=== PATIENT | female | born 1950 | race Caucasian/White ===

== ENCOUNTER 2024-12-26 04:33 | Inpatient (IN) | payer MEDICARE, BC ==
[2024-12-26 06:12] LABS: Glucose,Whole Blood 107 mg/dL (70-110)
--- NOTE | 2024-12-26 07:23 | ED ---
General Adult HPI <IreneMorenitazuleima Khan - Last Filed: 12/26/24 09:46> - General Source: EMS Mode of arrival: EMS <AlekTatianna - Last Filed: 12/26/24 19:08> - General Chief complaint: Fall Stated complaint: Fall Time Seen by Provider: 12/26/24 04:34 - History of Present Illness Initial comments: Patient is a 74-year-old female with a past medical history of myasthenia gravis presenting today for generalized weakness after slipping out of bed this evening. Patient is a poor historian though is AO x 4. States that she slid o ut of bed to the ground this evening. She did not hit her head and denies injury. She was unable to get up to stand so they called for a lift assist. The patient states that the fire department "has become very familiar with her recently" and when asked if this is because of needing multiple lift assists she states yes and when asked how long has been going on for she is unable to tell me. The patient denies any recent fevers, illness or chills. Denies chest pain or shortness of breath. Endorses "pain all over when you touch her" but states this has been going on for a week and is not a new issue since sliding to the ground. She is not she is not on blood thinners. When asked about who she sees to manage her myasthenia gravis she states she used to see a doctor in [place] however upon moving to [place] she had meant to find a doctor but was unable to due to COVID-19 and has not followed up with anybody since. States she is taking her medications as prescribed. (Tatianna Barboza) - Related Data Home Medications Medication Instructions Recorded Confirmed predniSONE 10 mg PO DAILY 05/09/15 12/26/24 Latanoprost [Latanoprost 0.005%] 1 drop BOTH EYES HS 12/26/24 12/26/24 Morphine Sulfate ER [Ms Contin] 30 mg PO Q12HR 12/26/24 12/26/24 Rivaroxaban [Xarelto] 15 mg PO W/SUPPER 12/26/24 12/26/24 mycophenolate mofetiL [Cellcept] 500 mg PO BID 12/26/24 12/26/24 traMADol HCl [Ultram] 50 mg PO Q6H PRN 12/26/24 12/26/24 Allergies Allergy/AdvReac Type Severity Reaction Status Date / Time No Known Allergies Allergy Verified 12/26/24 09:44 Review of Systems ROS Other: All systems not noted in ROS Statement are negative. <Simone Bonilla - Last Filed: 12/26/24 09:46> Limitations: ROS unobtainable due to patients medical condition <Tatianna Barboza - Last Filed: 12/26/24 19:08> ROS Statement: Those systems with pertinent positive or pertinent negative responses have been documented in the HPI. 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 History of Any Multi-Drug Resistant Organisms: None Reported Past Surgical History: Section, Joint Replacement, Orthopedic Surgery, Tubal Ligation Additional Past Surgical History / Comment(s): Hip Replacment- Right 2009, Left- Nov 2013, 2 revisions and fix (dec, aug 19, fix sep 19) Past Anesthesia/Blood Transfusion Reactions: No Reported Reaction Past Psychological History: No Psychological Hx Reported Past Alcohol Use History: None Reported Past Drug Use History: None Reported - Past Family History Mother Family Medical History: Cancer, Hypertension Additional Family Medical History / Comment(s): Breast CA, Skin CA, grandmother had bad DM Father Family Medical History: Osteoarthritis (OA) Additional Family Medical History / Comment(s): DJD AND HIP REPLACEMENT, Skin CA <Tatianna Barboza - Last Filed: 12/26/24 19:08> General Exam <Tatianna Barboza - Last Filed: 12/26/24 19:08> - General Exam Comments Initial Comments: PE: CONSTITUTIONAL: No apparent distress, chronically ill-appearing SKIN: Warm, dry, no jaundice, hives or petechiae, no hematomas, contusions lacerations or abrasions EYES: Pupils are equally round, extraocular movements intact without nystagmus, clear conjunctiva, non-icteric sclera, no ptosis HENT: Normocephalic, atraumatic, moist mucus membranes, oropharynx clear without exudates NECK: , Full range of motion, normal appearance, no midline spinal tenderness palpation PULMONARY: Clear to auscultation without wheezes, rhonchi, or rales, normal excursion, no accessory muscle use and no stridor CARDIOVASCULAR: Regular rate, rhythm, normal S1 and S2. No appreciated murmurs, rubs or gallops. Strong radial pulses with intact distal perfusion. No lower extremity edema GASTROINTESTINAL: Soft, active bowel sounds throughout, non-tender, non- distended, no palpable masses, no rebound or guarding. No hepatosplenomegaly MUSCULOSKELETAL: Extremities have no gross deformity, no tenderness palpation or signs of injury, back has no signs of injury no midline spinal tenderness palpation NEUROLOGIC:_a/o x 3, GCS 15, patient does take a prolonged amount of time to answer certain questions and appears to lose train of thought frequently however speech is clear, no focal neurologic deficits,. Moves all extremities x 4 without sensory deficit, there was diffusely weak with 2-3 out of 5 strength in all 4 extremities PSYCHIATRIC:_normal mood and affect, thought process is linear though does ap pear clouded at times (Tatianna Barboza) Course Vital Signs 12/26/24 12/26/24 12/26/24 04:40 05:16 06:01 Temperature 98.4 F 98.2 F Pulse Rate 109 H 91 Respiratory 18 18 Rate Blood Pressure 109/83 112/74 132/79 O2 Sat by Pulse 97 98 98 Oximetry 12/26/24 12/26/24 12/26/24 09:00 12:00 17:54 Temperature Pulse Rate 105 H 113 H 115 H Respiratory 18 18 17 Rate Blood Pressure 122/76 90/71 121/78 O2 Sat by Pulse 98 96 98 Oximetry EKG Findings - EKG Comments: EKG Findings:: Sinus tachycardia, rate 104 bpm WA interval 133 ms QT/QTc 341/401 ms, left axis deviation, no ST elevations or depressions, no STEMI no arr hythmia <Tatianna Barboza - Last Filed: 12/26/24 19:08> Medical Decision Making - Lab Data Result diagrams: 12/26/24 07:50 12/26/24 07:50 <Simone Bonilla - Last Filed: 12/26/24 09:46> - Lab Data Result diagrams: 12/26/24 07:50 12/26/24 07:50 <Tatianna Barboza - Last Filed: 12/26/24 19:08> - Medical Decision Making Patient care signed out to me by previous shift physician, Dr. Barboza. Briefly, patient is a 74-year-old female with past medical history of myasthenia gravis presents to the emergency department after she fell was too weak to get up. Patient seen and evaluated at the bedside. Ultrasound-guided IV was placed in the right mid arm. Patient tolerated procedure well. States of all of her complaints her primary complaint is of back pain and the fact that she is so we ak that she cannot get up. Patient in no acute distress at the bedside. She is not showing signs of dyspnea or lethargy. Pending labs reviewed. Labs are unremarkable. Viral testing is negative. Case discussed with hospitalist for admission. Patient gravely disabled hospitalist request neurology consultation. Diagnosis/symptom? @ -Gravely disabled Acute, or Chronic, or Acute on Chronic? @ -Default Uncomplicated (without systemic symptoms) or Complicated (systemic symptoms)? @ -Default Side effects of treatment? @ -None Exacerbation, Progression, or Severe Exacerbation] @ -No Poses a threat to life or bodily function? @ -yes (Simone Bonilla) Was pt. sent in by a medical professional or institution (RILEY Amado, UNDERTAKER ASSISTANT, urgent care, hospital, or assisted...) When possible be specific @ -No Did you speak to anyone other than the patient for history (EMS, parent, family, police, friend...)? What history was obtained from this source @ -No Did you review nursing and triage notes (agree or disagree)? Why? @ -I reviewed nursing and triage notes patient said out of bed this morning, too weak to get up, reports taking Xarelto no head injury or loss of consciousness, history myasthenia gravis Were old charts reviewed (outside hosp., previous admission, EMS record, old EKG, old radiological studies, urgent care reports/EKG's, assisted records)? Report findings @ -Medical records reviewed patient has not been seen in the hospital/most recent records review are from 2014, and EEG done at that time for metabolic encephalopathy 50 there was no epileptiform activity Differential Diagnosis (chest pain, altered mental status, abdominal pain women, abdominal pain men, vaginal bleeding, weakness, fever, dyspnea, syncope, headache, dizziness, GI bleed, back pain, seizure, CVA, palpatations, mental health, musculoskeletal)? @Differential Weakness: Hypoglycemia, shock, sepsis, myasthenic crisis, hyponatremia, anemia, infection, MD, ETOH, adverse medicine reaction, overdose, stroke, this is not meant to be an all-inclusive list. EKG interpreted by me (3pts min.). @ -As above CT interpreted by me (1pt min.). @ -None done U/S interpreted by me (1pt. min.). @ -None done What testing was considered but not performed or refused? (CT, X-rays, U/S, labs)? Why? @ -None What meds were considered but not given or refused? Why? @ -None Did you discuss the management of the patient with other professionals (professionals i.e. , PA, UNDERTAKER ASSISTANT, lab, RT, psych nurse, social service agency director, range aide, teacher, adult parole officer, employment evaluator/case manager)? Give summary @ -No Was smoking cessation discussed for >3mins.? @ -No Was critical care preformed (if so, how long)? @ -No Were there social determinants of health that impacted care today? How? (Homelessness, low income, unemployed, alcoholism, drug addiction, transportation, low edu. Level, literacy, decrease access to med. care, long term, rehab)? @ -No Was there de-escalation of care discussed even if they declined (Discuss DNR or withdrawal of care, Hospice)? @ -No What co-morbidities impacted this encounter? (DM, HTN, Smoking, COPD, CAD, Cancer, CVA, ARF, Chemo, Hep., AIDS, mental health diagnosis, sleep apnea, m orbid obesity)? @Myasthenia gravis, prior PE on Xarelto Was patient admitted / discharged? Hospital course, mention meds given and route, prescriptions, significant lab abnormalities, going to OR and other pertinent info. @ -Signed out to oncoming physician, Dr. Hickey, pending completion of labs, anticipate admission due to generalized weakness-patient is a 74-year-old female past medical history of PE on Xarelto, myasthenia gravis, COPD presenting today for slipping out of bed to the floor and being unable to get up. The patient denies injury and has no signs of injury on my assessment. She is AO x 4 however does take a prolonged amount of time to answer questions and seems to easily loses train of thought during history gathering. She denies head injury, loss of consciousness, neck pain, or additional injury, stating that she only slid out of bed. Of note on exam there is no ptosis, she is diffusely weak in all 4 extremities and chronically ill-appearing though nontoxic and in no acute distress. She has no difficulty in breathing or shortness of breath on my exam. I have a low suspicion for myasthenia crisis however respiratory therapy was contacted to obtain negative inspiratory force, forced vital capacity and FEV, this will be obtained shortly. Comprehensive labs ordered to evaluate for additional etiology of weakness, and chest x-ray no additional imaging was ord ered as patient has no other signs of injury and no complaints of injury. Patient agreeable plan of care. At this point my shift is controlled close the patient will be signed out to oncoming physician pending completion of her workup. Pertinent PMH, HPI, physical exam findings and pending evaluation as well as anticipated disposition were discussed with oncoming physician. All questions were answered and patient was signed out in stable condition. (Tatianna Barboza) - Lab Data Lab Results 12/26/24 12/26/24 12/26/24 Range/Units 06:11 06:12 07:50 WBC 8.7 (3.8-10.6) k/uL RBC 4.58 (3.80-5.40) m/uL Hgb 8.8 L (11.4-16.0) gm/dL Hct 30.9 L (34.0-46.0) % MCV 67.3 L (80.0-100.0) fL MCH 19.2 L (25.0-35.0) pg MCHC 28.6 L (31.0-37.0) g/dL RDW 16.5 H (11.5-15.5) % Plt Count 288 (150-450) k/uL MPV 7.4 Neutrophils % 70 % Lymphocytes % 19 % Monocytes % 7 % Eosinophils % 2 % Basophils % 1 % Neutrophils # 6.1 (1.3-7.7) k/uL Lymphocytes # 1.7 (1.0-4.8) k/uL Monocytes # 0.6 (0-1.0) k/uL Eosinophils # 0.2 (0-0.7) k/uL Basophils # 0.0 (0-0.2) k/uL Hypochromasia Marked Anisocytosis Slight Microcytosis Marked PT (10.0-12.5) sec INR (<1.2) APTT (22.0-30.0) sec Sodium (137-145) mmol/L Potassium (3.5-5.1) mmol/L Chloride (98-107) mmol/L Carbon Dioxide (22-30) mmol/L Anion Gap mmol/L BUN (7-17) mg/dL Creatinine (0.52-1.04) mg/dL Est GFR (CKD-EPI)AfAm (>60 ml/min/1.73 sqM) Est GFR (CKD-EPI)NonAf (>60 ml/min/1.73 sqM) Glucose (74-99) mg/dL POC Glucose (mg/dL) 107 (70-110) mg/dL POC Glu Press Technician ID TRAE DAMIAN Calcium (8.4-10.2) mg/dL Ionized Calcium Cale (4.5-5.3) mg/dL Total Bilirubin (0.2-1.3) mg/dL AST (14-36) U/L ALT (4-34) U/L Alkaline Phosphatase (38-126) U/L Troponin I (0.000-0.034) ng/mL C-Reactive Protein (<1.0) mg/dL Total Protein (6.3-8.2) g/dL Albumin (3.5-5.0) g/dL Influenza Type A (PCR) Not Detected (Not Detectd) Influenza Type B (PCR) Not Detected (Not Detectd) RSV (PCR) Not Detected (Not Detectd) SARS-CoV-2 (PCR) Not Detected (Not Detectd) 12/26/24 12/26/24 12/26/24 Range/Units 07:50 07:50 07:50 WBC (3.8-10.6) k/uL RBC (3.80-5.40) m/uL Hgb (11.4-16.0) gm/dL Hct (34.0-46.0) % MCV (80.0-100.0) fL MCH (25.0-35.0) pg MCHC (31.0-37.0) g/dL RDW (11.5-15.5) % Plt Count (150-450) k/uL MPV Neutrophils % % Lymphocytes % % Monocytes % % Eosinophils % % Basophils % % Neutrophils # (1.3-7.7) k/uL Lymphocytes # (1.0-4.8) k/uL Monocytes # (0-1.0) k/uL Eosinophils # (0-0.7) k/uL Basophils # (0-0.2) k/uL Hypochromasia Anisocytosis Microcytosis PT 11.8 (10.0-12.5) sec INR 1.1 (<1.2) APTT 23.2 (22.0-30.0) sec Sodium 141 (137-145) mmol/L Potassium 4.1 (3.5-5.1) mmol/L Chloride 105 (98-107) mmol/L Carbon Dioxide 25 (22-30) mmol/L Anion Gap 11 mmol/L BUN 19 H (7-17) mg/dL Creatinine 1.03 (0.52-1.04) mg/dL Est GFR (CKD-EPI)AfAm 62 (>60 ml/min/1.73 sqM) Est GFR (CKD-EPI)NonAf 54 (>60 ml/min/1.73 sqM) Glucose 119 H (74-99) mg/dL POC Glucose (mg/dL) (70-110) mg/dL POC Glu Press Technician ID Calcium 9.1 (8.4-10.2) mg/dL Ionized Calcium Cale 4.8 (4.5-5.3) mg/dL Total Bilirubin 0.7 (0.2-1.3) mg/dL AST 19 (14-36) U/L ALT 9 (4-34) U/L Alkaline Phosphatase 127 H (38-126) U/L Troponin I <0.012 (0.000-0.034) ng/mL C-Reactive Protein (<1.0) mg/dL Total Protein 6.5 (6.3-8.2) g/dL Albumin 3.8 (3.5-5.0) g/dL Influenza Type A (PCR) (Not Detectd) Influenza Type B (PCR) (Not Detectd) RSV (PCR) (Not Detectd) SARS-CoV-2 (PCR) (Not Detectd) 12/26/24 Range/Units 07:50 WBC (3.8-10.6) k/uL RBC (3.80-5.40) m/uL Hgb (11.4-16.0) gm/dL Hct (34.0-46.0) % MCV (80.0-100.0) fL MCH (25.0-35.0) pg MCHC (31.0-37.0) g/dL RDW (11.5-15.5) % Plt Count (150-450) k/uL MPV Neutrophils % % Lymphocytes % % Monocytes % % Eosinophils % % Basophils % % Neutrophils # (1.3-7.7) k/uL Lymphocytes # (1.0-4.8) k/uL Monocytes # (0-1.0) k/uL Eosinophils # (0-0.7) k/uL Basophils # (0-0.2) k/uL Hypochromasia Anisocytosis Microcytosis PT (10.0-12.5) sec INR (<1.2) APTT (22.0-30.0) sec Sodium (137-145) mmol/L Potassium (3.5-5.1) mmol/L Chloride (98-107) mmol/L Carbon Dioxide (22-30) mmol/L Anion Gap mmol/L BUN (7-17) mg/dL Creatinine (0.52-1.04) mg/dL Est GFR (CKD-EPI)AfAm (>60 ml/min/1.73 sqM) Est GFR (CKD-EPI)NonAf (>60 ml/min/1.73 sqM) Glucose (74-99) mg/dL POC Glucose (mg/dL) (70-110) mg/dL POC Glu Press Technician ID Calcium (8.4-10.2) mg/dL Ionized Calcium Cale (4.5-5.3) mg/dL Total Bilirubin (0.2-1.3) mg/dL AST (14-36) U/L ALT (4-34) U/L Alkaline Phosphatase (38-126) U/L Troponin I (0.000-0.034) ng/mL C-Reactive Protein 5.3 H (<1.0) mg/dL Total Protein (6.3-8.2) g/dL Albumin (3.5-5.0) g/dL Influenza Type A (PCR) (Not Detectd) Influenza Type B (PCR) (Not Detectd) RSV (PCR) (Not Detectd) SARS-CoV-2 (PCR) (Not Detectd) Disposition Decision Time: 09:47 <Simone Bonilla - Last Filed: 12/26/24 09:46> <Tatianna Barboza - Last Filed: 12/26/24 19:08> Clinical Impression: Gravely disabled Disposition: ADMITTED IP TO THIS HOSP Condition: Fair
--- NOTE | 2024-12-26 07:23 | XR ---
EXAMINATION TYPE: XR chest 1V DATE OF EXAM: 12/26/2024 6:25 AM COMPARISON: 08/15/2015 CLINICAL INDICATION: Female, 74 years old with history of Weakness, TECHNIQUE: XR chest 1V view(s) obtained. FINDINGS: The heart size is normal. The pulmonary vasculature is normal. The lungs are clear. IMPRESSION: 1. No acute pulmonary process. [facility], , 12/26/2024 7:21 AM
[2024-12-26 07:31] LABS: Influenza A Not Detected (Not Detectd); Influenza B Not Detected (Not Detectd); RSV Not Detected (Not Detectd)
[2024-12-26 08:05] LABS: Ionized Calcium 4.8 mg/dL (4.5-5.3)
[2024-12-26 08:11] LABS: Anisocytosis Slight; Basophils % (A) 1 %; Eosinophils # (A) 0.2 k/uL (0-0.7); Eosinophils % (A) 2 %; HCT 30.9 % (34.0-46.0); HGB 8.8 gm/dL (11.4-16.0); Hypochromasia Marked; Lymphocytes # (A) 1.7 k/uL (1.0-4.8); Lymphocytes % (A) 19 %; MCH 19.2 pg (25.0-35.0); MCHC 28.6 g/dL (31.0-37.0); MCV 67.3 fL (80.0-100.0); Mean Platelet Volume 7.4; Microcytosis Marked; Monocytes # (A) 0.6 k/uL (0-1.0); Monocytes % (A) 7 %; Neutrophils # (A) 6.1 k/uL (1.3-7.7); Neutrophils % (A) 70 %; Platelet Count 288 k/uL (150-450); RBC 4.58 m/uL (3.80-5.40); RDW 16.5 % (11.5-15.5); WBC 8.7 k/uL (3.8-10.6)
[2024-12-26 08:16] LABS: INR 1.1 (<1.2); Partial Thromboplastin Time 23.2 sec (22.0-30.0); Prothrombin Time 11.8 sec (10.0-12.5)
[2024-12-26 08:17] LABS: ALT 9 U/L (4-34); AST 19 U/L (14-36); African American GFR (CKD) 62 (>60 ml/min/1.73 sqM); Albumin 3.8 g/dL (3.5-5.0); Alkaline Phosphatase 127 U/L (38-126); Anion Gap 11 mmol/L; Blood Urea Nitrogen 19 mg/dL (7-17); Calcium 9.1 mg/dL (8.4-10.2); Carbon Dioxide 25 mmol/L (22-30); Chloride 105 mmol/L (98-107); Glucose 119 mg/dL (74-99); Non-African American GFR(CKD) 54 (>60 ml/min/1.73 sqM); Potassium 4.1 mmol/L (3.5-5.1); Sodium 141 mmol/L (137-145); Total Bilirubin 0.7 mg/dL (0.2-1.3); Total Protein 6.5 g/dL (6.3-8.2)
[2024-12-26] MEDS: SODIUM CHLORIDE 0.9% 500 ML 500 ML IV STA (08:28)
[2024-12-26] MEDS: ONDANSETRON 4 MG/2 ML VIAL IVP STA (08:29)
[2024-12-26] MEDS: MORPHINE SULFATE 4 MG/ML SYRINGE IVP STA (08:29)
[2024-12-26] MEDS ORDERED: NALOXONE 0.4 MG/ML 1 ML VIAL IV PRN (09:45)
[2024-12-26] MEDS: SODIUM CHLORIDE 0.9% 1,000 ML IV SCH ×2 (10:07→16:27)
[2024-12-26] MEDS ORDERED: traMADol 50 MG TAB PO PRN (14:37)
[2024-12-26] MEDS ORDERED: ACETAMINOPHEN TAB 325 MG TAB PO PRN (14:38)
[2024-12-26] MEDS ORDERED: ONDANSETRON 4 MG/2 ML VIAL IVP PRN (14:38)
--- NOTE | 2024-12-26 14:52 | P.HPIM ---
History of Present Illness H&P Date: 12/26/24 Pleasant 74-year-old female patient of Dr. Oates'kun. Patient comes into the hospital after sustaining a fall at home. The fire station was called out to assist the patient back up to her feet and does state that she has been having increased falls while at home. Denies hitting her head. She also reports that she has pain all over and is unable to tolerate even touching her skin. She does have chronic pain and is maintained on a combination of oral tramadol and oral MS Contin on an outpatient basis. Patient with history of myasthenia gravis diagnosed back in [place] does not follow with a neurologist here.,'s history of COPD, stroke, hypertension, hype per lipidemia, pulmonary embolism m aintained on Xarelto and patient also reports that she has history of foot drop on the left side. Chest x-ray on admission reveals no acute pulmonary process. EKG reveals sinus tachycardia heart rate of [address] or T wave changes. Adams values reveal a white blood cell count of 8.7, hemoglobin 8.8, MCV of 67.3, sodium 141, potassium 4.1, BUN of 19 creatinine of 1.03, glucose of 119. Alk phos level of 127. LFTs are normal, troponin level is normal. Her viral panel is negative for influenza RSV and COVID. She was admitted to the hospital under internal medicine consult placed to neurology due to the history of the myasthenia gravis and worsening weakness and fatigue at home. Physical therapy Occupational Therapy will be consulted as well as social work for discharge planning and patient may require some type of subacute rehab at discharge. REVIEW OF SYSTEMS: CONSTITUTIONAL: No fever, no malaise, Reports fatigue. HEENT: No recent visual problems or hearing problems. Denied any sore throat. CARDIOVASCULAR: No chest pain, orthopnea, PND, no palpitations, no syncope. PULMONARY: No shortness of breath, no cough, no hemoptysis. GASTROINTESTINAL: No diarrhea, no nausea, no vomiting, no abdominal pain. NEUROLOGICAL: No headaches, no weakness, no numbness. HEMATOLOGICAL: Denies any bleeding or petechiae. GENITOURINARY: Denies any burning micturition, frequency, or urgency. Pt is incontinent of urine at baseline. MUSCULOSKELETAL/RHEUMATOLOGICAL: Denies any joint pain, swelling, or any muscle pain. ENDOCRINE: Denies any polyuria or polydipsia. The rest of the 14-point review of systems is negative. PHYSICAL EXAMINATION: GENERAL: The patient is alert and oriented x3, not in any acute distress. Well developed, well nourished. HEENT: Pupils are round and equally reacting to light. EOMI. No scleral icterus. No conjunctival pallor. Normocephalic, atraumatic. No pharyngeal erythema. No thyromegaly. CARDIOVASCULAR: S1 and S2 present. No murmurs, rubs, or gallops. PULMONARY: Chest is clear to auscultation, no wheezing or crackles. ABDOMEN: Soft, nontender, nondistended, normoactive bowel sounds. No palpable organomegaly. MUSCULOSKELETAL: No joint swelling or deformity. EXTREMITIES: No cyanosis, clubbing, or pedal edema. NEUROLOGICAL: Gross neurological examination did not reveal any focal deficits. Generalized weakness. History of left foot drop. SKIN: No rashes. 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 Repeat BMP in the AM The impression and plan of care has been dictated by Aminta Theodore Nurse Practitioner as directed. Dr. Mann MD I have performed a history and physical examination and medical decision making of this patient, discussed the same with the dictator, and agree with the dictators assessment and plan as written, documented as a scribe. Based on total visit time, I have performed more than 50% of this visit. 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 History of Any Multi-Drug Resistant Organisms: None Reported Past Surgical History: Section, Joint Replacement, Orthopedic Surgery, Tubal Ligation Additional Past Surgical History / Comment(s): Hip Replacment- Right 2009, Left- Nov 2013, 2 revisions and fix (dec, aug 19, fix sep 19) Past Anesthesia/Blood Transfusion Reactions: No Reported Reaction Past Psychological History: No Psychological Hx Reported Past Alcohol Use History: None Reported Past Drug Use History: None Reported - Past Family History Mother Family Medical History: Cancer, Hypertension Additional Family Medical History / Comment(s): Breast CA, Skin CA, grandmother had bad DM Father Family Medical History: Osteoarthritis (OA) Additional Family Medical History / Comment(s): DJD AND HIP REPLACEMENT, Skin CA Medications and Allergies Home Medications Medication Instructions Recorded Confirmed Type predniSONE 10 mg PO DAILY 05/09/15 12/26/24 History Latanoprost [Latanoprost 0.005%] 1 drop BOTH EYES HS 12/26/24 12/26/24 History Morphine Sulfate ER [Ms Contin] 30 mg PO Q12HR 12/26/24 12/26/24 History Rivaroxaban [Xarelto] 15 mg PO W/SUPPER 12/26/24 12/26/24 History mycophenolate mofetiL [Cellcept] 500 mg PO BID 12/26/24 12/26/24 History traMADol HCl [Ultram] 50 mg PO Q6H PRN 12/26/24 12/26/24 History Allergies Allergy/AdvReac Type Severity Reaction Status Date / Time No Known Allergies Allergy Verified 12/26/24 09:44 Physical Exam Vitals: Vital Signs Temp Pulse Resp BP Pulse Ox 12/26/24 12:00 113 H 18 90/71 96 12/26/24 09:00 105 H 18 122/76 98 12/26/24 06:01 98.2 F 91 18 132/79 98 12/26/24 05:16 112/74 98 12/26/24 04:40 98.4 F 109 H 18 109/83 97 Intake and Output 02/21/25 02/22/25 02/22/25 22:59 06:59 14:59 Other: Weight 95.708 kg Results CBC & Chem 7: 12/26/24 07:50 12/26/24 07:50 Labs: Abnormal Lab Results - Last 24 Hours (Table) 12/26/24 12/26/24 Range/Units 07:50 07:50 Hgb 8.8 L (11.4-16.0) gm/dL Hct 30.9 L (34.0-46.0) % MCV 67.3 L (80.0-100.0) fL MCH 19.2 L (25.0-35.0) pg MCHC 28.6 L (31.0-37.0) g/dL RDW 16.5 H (11.5-15.5) % BUN 19 H (7-17) mg/dL Glucose 119 H (74-99) mg/dL Alkaline Phosphatase 127 H (38-126) U/L Assessment and Plan Time with Patient: Less than 30
[2024-12-26] MEDS: MORPHINE SULFATE ER 30 MG TABLET PO SCH (16:25)
[2024-12-26] MEDS: predniSONE 10 MG TAB PO SCH (16:25)
[2024-12-26] MEDS: RIVAROXABAN 15 MG TAB PO SCH (17:53)
[2024-12-26 18:26] LABS: Appearance,Urine Cloudy (Clear); Bacteria,Urine Moderate /hpf; Bilirubin,Urine Negative (Negative); Blood,Urine Negative (Negative); Color,Urine Yellow; Glucose,Urine (UA) Negative (Negative); Ketones,Urine Trace (Negative); Leukocyte Esterase,Urine Large (Negative); Mucus,Urine Rare /hpf; Nitrite,Urine Negative (Negative); PH, Urine 5.5 (5.0-8.0); Protein,Urine Trace (Negative); RBC,Urine 6 /hpf (0-5); Specific Gravity,Urine 1.029 (1.001-1.035); Squamous Epithelial Cell,Urine 2 /hpf (0-4); Urobilinogen,Urine <2.0 mg/dL (<2.0); WBC,Urine 4 /hpf (0-5)
[2024-12-26] MEDS: LATANOPROST 0.005% OPHTH DROPS 2.5 ML BTL BOTH EYES SCH (20:29)
[2024-12-27 07:51] LABS: African American GFR (CKD) 76 (>60 ml/min/1.73 sqM); Anion Gap 6 mmol/L; Blood Urea Nitrogen 17 mg/dL (7-17); Calcium 8.7 mg/dL (8.4-10.2); Carbon Dioxide 26 mmol/L (22-30); Chloride 107 mmol/L (98-107); Glucose 79 mg/dL (74-99); Non-African American GFR(CKD) 66 (>60 ml/min/1.73 sqM); Potassium 4.2 mmol/L (3.5-5.1); Sodium 139 mmol/L (137-145)
[2024-12-27 08:25] LABS: Vitamin B12 <150.0 pg/mL (200.0-944.0)
[2024-12-27 08:29] LABS: % Iron Saturation 3.68 (12.00-45.00); Ferritin 22.6 ng/mL (10.0-291.0)
--- NOTE | 2024-12-27 10:29 | P.CNNES ---
History of Present Illness Consult date: 12/26/24 Requesting physician: Simone Bonilla Reason for Consult: myasthenia gravis History of Present Illness: Patient is a 74-year-old female, with a diagnosis of myasthenia gravis came to the hospital by ambulance early this morning at 4:33 AM. EMS flowsheet not available in the chart. Patient states that she came to the hospital because she fell off the bed and could not get herself off the floor. She felt very weak, asked her to call EMS. Patient states that she has been feeling weak for last 2 to 3 years. Patient states that she has been feeling weak for the last 3 weeks and has "dramatically changed". At present she states that she is talking well, no slurring of speech. No problem chewing food, no difficulty breathing, no dysphagia, no diplopia. She lives with her and has 3 c hildren and one of them lives in [place]. Patient states that she came to the hospital last week because she was so sick was not getting better. She was having some stomach aches and dry heaves for 2 days. She was admitted for a day and then released. Patient states she was diagnosed with myasthenia gravis in 2013 or 2014 at [facility] in [place]. Her initial symptoms were that she was talking funny, not in her normal voice "like minions" and she could not chew. She also had issues with her hip at that time. Patient states that she saw she saw an retail salesworker in [place], who is specializes myasthenia gravis, and was diagnosed with myasthenia gravis. She was hospitalized for 3 weeks for which she underwent some treatment which she described as "switching ions", probably i ndicating plasma exchange. She was started on CellCept and prednisone and has been doing well all these years. However when she is under extreme stress, she starts talking funny and when she calms down, everything goes away. She had no significant flares up except when she is under a lot of stress as mentioned above. Patient states that she saw "couple neurologist" in [place] but has not been following with them. However since [facility], she has stayed inside and has not been able to see her neurologist. Patient states that she went back to the doctor in [place] but the "switch around a lot". At present her medications for myasthenia are prescribed by her primary physician Dr. Oates. Patient states that she tried Mestinon, but she "did not care for it" as it produced side effects which she does not remember. Vital signs on arrival blood pressure 109/83, pulse rate 109, temperature 98.4. Patient has been afebrile. Blood test shows normal WBC hemoglobin 8.8, platelets 288. PT PTT normal, CMP with BUN 19 creatinine 1.03. Hepatic panel is normal. Troponin negative. CRP slightly elevated 5.3. Influenza, RSV and coronavirus PCR negative. UA is significant for large amount of leukocyte Estrace, moderate bacteria and 2 epithelial cells. Urine cultures are pending. Patient's previous B12 was low 192 on 12/20/2023, currently not on replacement. Patient's previous acetylcholine receptor binding antibody was 0.32 (<0.25) on 06/09/2015. Her TPO was also elevated 42.9/39.9 on 09/27/2015. Lyme titer negative. Chest x-ray showed no acute pulmonary process. EKG showed sinus tachycardia. Patient had an EEG on 08/19/2015 which was mildly abnormal due to mild background slowing. Her previous multiple EEGs were normal. Her home medications include prednisone 10 mg daily and CellCept 500 mg twice daily, also on Xarelto 15 mg, MS Contin 30 mg every 12 hours and tramadol 50 mg every 6 hours as needed. Patient states that she walks with a walker for last 15 years after her hip surgery. Otherwise she would be bouncing from door to door. Patient denies any use of tobacco, alcohol, denies diabetes or hypertension. Review of Systems All pertinent positive and negative review of systems mentioned in the HPI. She does have a chronic left dropfoot since she had her hip surgery several years ago. 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 History of Any Multi-Drug Resistant Organisms: None Reported Past Surgical History: Section, Joint Replacement, Orthopedic Surgery, Tubal Ligation Additional Past Surgical History / Comment(s): Hip Replacment- Right 2009, Left- Nov 2013, 2 revisions and fix (dec, aug 19, fix sep 19) Past Anesthesia/Blood Transfusion Reactions: No Reported Reaction Past Psychological History: No Psychological Hx Reported Past Alcohol Use History: None Reported Past Drug Use History: None Reported - Past Family History Mother Family Medical History: Cancer, Hypertension Additional Family Medical History / Comment(s): Breast CA, Skin CA, grandmother had bad DM Father Family Medical History: Osteoarthritis (OA) Additional Family Medical History / Comment(s): DJD AND HIP REPLACEMENT, Skin CA Medications and Allergies Home Medications Medication Instructions Recorded Confirmed Type predniSONE 10 mg PO DAILY 05/09/15 12/26/24 History Latanoprost [Latanoprost 0.005%] 1 drop BOTH EYES HS 12/26/24 12/26/24 History Morphine Sulfate ER [Ms Contin] 30 mg PO Q12HR 12/26/24 12/26/24 History Rivaroxaban [Xarelto] 15 mg PO W/SUPPER 12/26/24 12/26/24 History mycophenolate mofetiL [Cellcept] 500 mg PO BID 12/26/24 12/26/24 History traMADol HCl [Ultram] 50 mg PO Q6H PRN 12/26/24 12/26/24 History Allergies Allergy/AdvReac Type Severity Reaction Status Date / Time No Known Allergies Allergy Verified 12/26/24 09:44 Physical Examination - Vital Signs Vital Signs: Vital Signs Temp Pulse Resp BP Pulse Ox 12/26/24 12:00 113 H 18 90/71 96 12/26/24 09:00 105 H 18 122/76 98 12/26/24 06:01 98.2 F 91 18 132/79 98 12/26/24 05:16 112/74 98 12/26/24 04:40 98.4 F 109 H 18 109/83 97 Intake and Output 12/26/24 12/26/24 12/26/24 06:59 14:59 22:59 Other: Weight 95.708 kg Patient is an elderly female, very pleasant, in no acute distress. Patient is laying in a very unusual position, with her head end of the bed almost 80 degree, and her head is against the head end of the bed but the rest of the body against the rest of the bed almost at 80 degree. Patient is alert awake oriented to time place and person. Speech and language functions are normal. Patient can name and repeat very well. No aphasia or dysarthria. Attention, concentration and fund of knowledge is adequate. Patient did not develop any dysarthria even with prolonged talking as above. On cranial nerve examination, pupils are equal, round and reacting to light, visual myers are full on confrontation, with no neglect on double simultaneous stimulation. Extraocular muscles are intact with no nystagmus. Face is symmetric, tongue protrudes to the midline. Palatal elevation and sensation normal, hearing and shoulder shrug normal, facial sensation normal. Patient's strength of eye closure, and lower facial region is normal. Her tongue protrusion [id number] is normal. On muscle strength testing, there is no pronator drift and the strength (right/left) deltoid 5-/5-, biceps 5/5, triceps 5/5, associate publisher 4+/4+, hip flexion 5/4+5-, ankle dorsiflexion 5/0, peronei 5/0, inversion 5/4. Deep tendon reflexes are symmetric 1 at the biceps, 2 brachioradialis, 2 at the knees, 1+ ankles and plantars are withdrawal. Patient is extremely tender to any testing and hurts all over particularly for tendon reflex testing. Sensory to touch is equal with no neglect on double simultaneous stimulation. Cerebellar function showed no ataxia for [id number] testing. No dysdiadoch okinesia. Not able to check for ataxia in the lower limbs. Tone and bulk of muscles normal. Gait deferred.. On general examination, there is no carotid bruit or murmur, S1-S2 audible. Chest is clear on consultation. Abdomen is soft nontender. No organomegaly, bowel sounds present. Peripheral pulses are present. No peripheral edema. Results - Laboratory Findings CBC and BMP: 12/26/24 07:50 12/27/24 07:23 Abnormal Lab Findings: Abnormal Labs 12/26/24 12/26/24 07:50 07:50 Hgb 8.8 L Hct 30.9 L MCV 67.3 L MCH 19.2 L MCHC 28.6 L RDW 16.5 H BUN 19 H Glucose 119 H Alkaline Phosphatase 127 H Assessment and Plan Assessment: * 74-year-old female with 10-year history of myasthenia gravis, stable on CellCept and prednisone, came with progressive weakness for last 2 to 3 years, particularly worse in the last 3 weeks. Patient denies any bulbar symptoms at all. She is generalized weak, rule out myasthenia gravis exacerbation. Patient does have history of B12 deficiency, but currently not on replacement. Rule out B12/folate deficiency. Rule out acute UTI. * History of chronic left foot drop since left hip surgery * Hypertension * Hyperlipidemia * History of PE, on Xarelto * History of left hip replacement with multiple revisions Plan: * Patient has presented with generalized weakness. Uncertain if it is MG exacerbation, but patient has no bulbar symptoms at all. Will perform further testing. * B12, folate, methylmalonic acid, acetylcholine receptor antibodies. * Patient has abnormal UA, urine cultures pending. * Continue CellCept 500 mg twice daily and prednisone 10 mg daily. Patient's hepatic panel and white cell count is normal. * Patient has history of PE. Continue Xarelto. * PT, OT. * Neurology will follow. Thank you for the consult. Time with Patient: Greater than 30
[2024-12-27] MEDS: CYANOCOBALAMIN 1,000 MCG/ML 1 ML VIAL IM SCH (10:48)
--- NOTE | 2024-12-27 20:53 | P.PN ---
Subjective Progress Note Date: 12/27/24 Pleasant 74-year-old female patient of Dr. Canela. Patient comes into the hospital after sustaining a fall at home. The fire station was called out to assist the patient back up to her feet and does state that she has been having increased falls while at home. Denies hitting her head. She also reports that she has pain all over and is unable to tolerate even touching her skin. She does have chronic pain and is maintained on a combination of oral tramadol and oral MS Contin on an outpatient basis. Patient with history of myasthenia gravis diagnosed back in [place] does not follow with a neurologist here.,'s history of COPD, stroke, hypertension, hype per lipidemia, pulmonary embolism maintained on Xarelto and patient also reports that she has history of foot drop on the left side. Chest x-ray on admission reveals no acute pulmonary process. EKG reveals sinus tachycardia heart rate of [address] or T wave changes. [place] values reveal a white blood cell count of 8.7, hemoglobin 8.8, MCV of 67.3, sodium 141, potassium 4.1, BUN of 19 creatinine of 1.03, glucose of 119. Alk phos level of 127. LFTs are normal, troponin level is normal. Her viral panel is negative for influenza RSV and COVID. She was admitted to the hospital under internal medicine consult placed to neurology due to the history of the myasthenia gravis and worsening weakness and fatigue at home. Physical therapy Occupational Therapy will be consulted as well as social work for discharge planning and patient may require some type of subacute rehab at discharge. 12/27/2024 Patient is evaluated today in follow up on the medical floor. Reports her pain has improved since yesterday. Currently on home dose of oral MS contin and prn ultram with prn toradol as well. Neurology on board. Patient undergoing work up for myasthenia gravis exacerbation. Pending PT evaluation. No acute complaints today. REVIEW OF SYSTEMS: CONSTITUTIONAL: No fever, no malaise, Reports fatigue. HEENT: No recent visual problems or hearing problems. Denied any sore throat. CARDIOVASCULAR: No chest pain, orthopnea, PND, no palpitations, no syncope. PULMONARY: No shortness of breath, no cough, no hemoptysis. GASTROINTESTINAL: No diarrhea, no nausea, no vomiting, no abdominal pain. NEUROLOGICAL: No headaches, no weakness, no numbness. PHYSICAL EXAMINATION: GENERAL: The patient is alert and oriented x3, not in any acute distress. Well developed, well nourished. HEENT: Pupils are round and equally reacting to light. EOMI. No scleral icterus. No conjunctival pallor. Normocephalic, atraumatic. No pharyngeal erythema. No thyromegaly. CARDIOVASCULAR: S1 and S2 present. No murmurs, rubs, or gallops. PULMONARY: Chest is clear to auscultation, no wheezing or crackles. ABDOMEN: Soft, nontender, nondistended, normoactive bowel sounds. No palpable organomegaly. MUSCULOSKELETAL: No joint swelling or deformity. EXTREMITIES: No cyanosis, clubbing, or pedal edema. NEUROLOGICAL: Gross neurological examination did not reveal any focal deficits. Generalized weakness. History of left foot drop. SKIN: No rashes. 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 PT/OT and social work consultation patient likely will require subacute rehab on discharge. The impression and plan of care has been dictated by Aminta Theodore, Nurse Practitioner as directed. Dr. Mann MD I have performed a history and physical examination and medical decision making of this patient, discussed the same with the dictator, and agree with the dictators assessment and plan as written, documented as a scribe. Based on total visit time, I have performed more than 50% of this visit. Objective - Vital Signs Vital signs: Vital Signs Temp 98.3 F 12/27/24 20:00 Pulse 85 12/27/24 20:00 Resp 12 12/27/24 20:00 BP 105/64 12/27/24 20:00 Pulse Ox 96 12/27/24 20:00 FiO2 Intake & Output 12/27/24 12/27/24 12/28/24 06:59 18:59 06:59 Output Total 1600 Balance -1600 Weight 95.708 kg Output: Urine 1600 Other: Voiding Method Diaper Diaper External Catheter External Catheter - Labs CBC & Chem 7: 12/26/24 07:50 12/27/24 07:23 Labs: Abnormal Lab Results - Last 24 Hours (Table) 12/26/24 12/26/24 12/26/24 Range/Units 07:50 07:50 16:35 ESR 74 H (0-30) mm/Hr Iron 13 L (50-170) UG/DL % Saturation 3.68 L (12.00-45.00) Vitamin B12 <150.0 L (200.0-944.0) pg/mL Assessment and Plan Time with Patient: Less than 30
--- NOTE | 2024-12-27 23:14 | P.PN ---
Subjective Progress Note Date: 12/27/24 Patient was seen for follow-up. Patient is laying in the bed. Patient is fully alert and awake. Offers no new complaints. She is feeling slightly better. Objective - Vital Signs Vital signs: Vital Signs Temp 98.3 F 12/27/24 20:00 Pulse 85 12/27/24 20:00 Resp 12 12/27/24 20:00 BP 105/64 12/27/24 20:00 Pulse Ox 96 12/27/24 20:00 FiO2 Intake & Output 12/27/24 12/27/24 12/28/24 06:59 18:59 06:59 Output Total 1600 Balance -1600 Weight 95.708 kg Output: Urine 1600 Other: Voiding Method Diaper Diaper External Catheter External Catheter - Exam Patient's examination unchanged. Mentation normal. - Labs CBC & Chem 7: 12/26/24 07:50 12/27/24 07:23 Labs: Abnormal Lab Results - Last 24 Hours (Table) 12/26/24 12/26/24 12/26/24 Range/Units 07:50 07:50 16:35 ESR 74 H (0-30) mm/Hr Iron 13 L (50-170) UG/DL % Saturation 3.68 L (12.00-45.00) Vitamin B12 <150.0 L (200.0-944.0) pg/mL Assessment and Plan Assessment: * 74-year-old female with 10-year history of myasthenia gravis, stable on CellCept and prednisone, came with progressive weakness for last 2 to 3 years, particularly worse in the last 3 weeks. Patient denies any bulbar symptoms at all. She is generalized weak, rule out myasthenia gravis exacerbation. Patient does have history of B12 deficiency, but currently not on replacement. Rule out B12/folate deficiency. Rule out acute UTI. * Vitamin B12 deficiency, severe * History of chronic left foot drop since left hip surgery * Hypertension * Hyperlipidemia * History of PE, on Xarelto * History of left hip replacement with multiple revisions Plan: * Patient has presented with generalized weakness. Uncertain if it is MG exacerbation, but patient has no bulbar symptoms at all. Will perform further testing. * B12 very low < 150, folate 10.6, await methylmalonic acid, acetylcholine receptor antibodies. TSH normal 0.962 * Patient has very severe B12 deficiency. Suspect her weakness is from B12 deficiency. MG exacerbation still in the differential. * We will start vitamin B12 replacement and see patient's symptoms improved. * Patient has abnormal UA, urine cultures pending. * Continue CellCept 500 mg twice daily and prednisone 10 mg daily. Patient's hepatic panel and white cell count is normal. * Patient has history of PE. Continue Xarelto. * PT, OT. * Dr. Melchor Saunders to started on the service for the morning.
[2024-12-28] MEDS: SODIUM FERRIC GLUCONAT-SUCROSE 125 MG in SODIUM CHLORIDE 0.9% 100 ML IVPB SCH (08:50)
--- NOTE | 2024-12-28 08:54 | P.PN ---
Subjective Progress Note Date: 12/28/24 This is a 74-year-old female who presented to the emergency department after a fall at home. Patient has a history of myasthenia gravis and follows with a neurologist in [place]. Neurology has been consulted for possible exacerbation of myasthenia gravis. Vitamin B12 level was extremely low. Patient has consults to physical and Occupational Therapy for evaluation for possible placement. Patient seen this morning lying in bed resting comfortably. She reports she is feeling better today however still feeling somewhat weak. Objective - Vital Signs Vital signs: Vital Signs Temp 98.2 F 12/28/24 07:08 Pulse 78 12/28/24 07:08 Resp 14 12/28/24 07:08 BP 148/72 12/28/24 07:08 Pulse Ox 99 12/28/24 07:08 FiO2 Intake & Output 12/27/24 12/28/24 12/28/24 18:59 06:59 18:59 Intake Total 450 Output Total 1600 250 Balance -1600 200 Intake: Oral 450 Output: Urine 1600 250 Other: Voiding Method Diaper Diaper External Catheter External Catheter - Constitutional General appearance: Present: cooperative, no acute distress - EENT Eyes: Present: PERRLA - Neck Neck: Present: normal ROM. Absent: lymphadenopathy, rigidity - Respiratory Respiratory: bilateral: diminished - Cardiovascular Heart sounds: normal: S1, S2 - Gastrointestinal General gastrointestinal: Present: soft. Absent: tenderness - Integumentary Integumentary: Present: normal, normal turgor - Musculoskeletal Musculoskeletal: Present: generalized weakness - Psychiatric Psychiatric: Present: A&O x's 3 - Labs CBC & Chem 7: 12/26/24 07:50 12/27/24 07:23 Labs: Abnormal Lab Results - Last 24 Hours (Table) 12/26/24 Range/Units 07:50 ESR 74 H (0-30) mm/Hr Assessment and Plan (1) Gravely disabled Current Visit: Yes Status: Acute Code(s): NAS8140 - SNOMED Code(s): 008159280 (2) History of myasthenia gravis Current Visit: Yes Status: Acute Code(s): Z86.69 - PERSONAL HISTORY OF DIS OF THE NERVOUS SYS AND SENSE ORGANS SNOMED Code(s): 496238574 (3) Vitamin B12 deficiency Current Visit: Yes Status: Acute Code(s): E53.8 - DEFICIENCY OF OTHER SPECIFIED B GROUP VITAMINS SNOMED Code(s): 074172805 (4) Hypertension Current Visit: Yes Status: Acute Code(s): I10 - ESSENTIAL (PRIMARY) HYPERTENSION SNOMED Code(s): 23755251 (5) Hyperlipidemia Current Visit: Yes Status: Acute Code(s): E78.5 - HYPERLIPIDEMIA, UNSPECIFIED SNOMED Code(s): 25729720 (6) History of pulmonary embolus (PE) Current Visit: Yes Status: Acute Code(s): Z86.711 - PERSONAL HISTORY OF PULMONARY EMBOLISM SNOMED Code(s): 601455583 Plan: Check CBC and CMP in the morning. Await evaluation by PT and OT. Patient seen and evaluated by nurse practitioner, physician in agreement with plan.
[2024-12-28] MEDS: RIVAROXABAN 10 MG TAB PO SCH (17:55)
--- NOTE | 2024-12-28 18:18 | P.PN ---
Subjective Progress Note Date: 12/28/24 I am Seeing the patient for the first time during this hospital visit. Please refer to Dr. Sanchez's note for further details. Seems the patient has a history of myasthenia gravis and she is on CellCept and prednisone and presents with progressive weakness over the last 2 to 3 years. She has generalized weakness. Seems the patient has acute urinary tract infection and has a history of B12 deficiency and is not on any replacement and her repeat vitamin B12 in our facility shows that her B12 is deficient less than 150. Objective - Vital Signs Vital signs: Vital Signs Temp 98.1 F 12/28/24 11:54 Pulse 82 12/28/24 11:54 Resp 14 12/28/24 11:54 BP 152/73 12/28/24 11:54 Pulse Ox 97 12/28/24 11:54 FiO2 Intake & Output 12/27/24 12/28/24 12/28/24 18:59 06:59 18:59 Intake Total 450 Output Total 1600 250 700 Balance -1600 200 -700 Intake: Oral 450 Output: Urine 1600 250 700 Other: Voiding Method Diaper Diaper Diaper External Catheter External Catheter External Catheter - Exam General: Lying in bed and is not in acute distress. Neuro: The patient is awake alert oriented to self place and time. Is following simple commands. No aphasia no neglect. Pupils are about 4 mm, round and reactive to light equally. No facial weakness. No dysarthria Motor strength is hard to assess individual muscle strength because of pain that is diffuse but is able to lift up bilateral upper extremity above gravity limitation in proximally of the uppers Reflex attempted reflexes but was aborted since the patient was in pain - Labs CBC & Chem 7: 12/26/24 07:50 12/27/24 07:23 Labs: Microbiology - Last 24 Hours (Table) 12/26/24 17:50 Urine Culture - Preliminary Urine,Voided Gram Neg Bacilli Assessment and Plan Assessment: * 74-year-old female with 10-year history of myasthenia gravis, stable on CellCept and prednisone, came with progressive weakness for last 2 to 3 years, particularly worse in the last 3 weeks. Patient denies any bulbar symptoms at all. She is generalized weak possible due to acute UT and B12 deficiency. Cannot truly rule out MG exacerbation but feels less likely. Patient does have history of B12 deficiency, but currently not on replacement. Rule out B12/folate deficiency. * Acute UTI * Vitamin B12 deficiency, severe <150. Hx of B12 deficiency and not on replacement * History of chronic left foot drop since left hip surgery * Hypertension * Hyperlipidemia * History of PE, on Xarelto * History of left hip replacement with multiple revisions Plan: * B12 very low < 150, folate 10.6, await methylmalonic acid, acetylcholine receptor antibodies. TSH normal 0.962 * Patient has very severe B12 deficiency. Suspect her weakness is from B12 deficiency. * We will start vitamin B12 replacement and see patient's symptoms improved. * Patient has abnormal UA, urine cultures: Gram negative bacilli. Will defer management to primary team. * Continue CellCept 500 mg twice daily and prednisone 10 mg daily. Patient's hepatic panel and white cell count is normal. * Patient has history of PE. Continue Xarelto. * PT, OT. Time with Patient: Less than 30
[2024-12-28] MEDS: CIPROFLOXACIN HCL 500 MG TAB PO SCH (20:42)
[2024-12-29 04:06] LABS: Methylmalonic Acid 0.49 umol/L (<0.40)
[2024-12-29 08:45] LABS: BUN/Creat Ratio 17.88 Ratio (12.00-20.00); Blood Urea Nitrogen 14.3 mg/dL (9.0-27.0); Glucose 78 mg/dL (70-110)
[2024-12-29 08:46] LABS: ALT 5 U/L (8-44); AST 15 U/L (13-35); Albumin 3.3 g/dL (3.8-4.9); Albumin/Globulin Ratio 1.57 Ratio (1.60-3.17); Alkaline Phosphatase 94 U/L (41-126); Calcium 8.3 mg/dL (8.7-10.3); Carbon Dioxide 24.3 mmol/L (21.6-31.8); Chloride 108 mmol/L (96-109); Globulin 2.1 g/dL (1.6-3.3); Potassium 4.3 mmol/L (3.5-5.5); Sodium 142 mmol/L (135-145); Total Bilirubin 0.2 mg/dL (0.3-1.2); Total Protein 5.4 g/dL (6.2-8.2)
--- NOTE | 2024-12-29 09:06 | P.PN ---
Subjective Progress Note Date: 12/29/24 This is a 74-year-old female who presented to the emergency department after a fall at home. Patient has a history of myasthenia gravis and follows with a neurologist in [place]. Neurology has been consulted for possible exacerbation of myasthenia gravis. Vitamin B12 level was extremely low. Patient has consults to physical and Occupational Therapy for evaluation for possible placement. Patient seen this morning lying in bed resting comfortably. She reports she is feeling better today however still feeling somewhat weak. 12/29/2024 Patient seen this morning sitting up in bed resting comfortably. Patient states her eyes have been itchy and puffy for the last several weeks with some drainage noted. Patient states she is constantly rubbing her eyes. Vitamin B12 is being replaced. Physical therapy is recommending subacute rehab at discharge. Objective - Vital Signs Vital signs: Vital Signs Temp 98.3 F 12/29/24 06:58 Pulse 75 12/29/24 06:58 Resp 16 12/29/24 06:58 BP 152/72 12/29/24 06:58 Pulse Ox 92 L 12/29/24 06:58 FiO2 Intake & Output 12/28/24 12/29/24 12/29/24 18:59 06:59 18:59 Output Total 700 Balance -700 Output: Urine 700 Other: Voiding Method Diaper Diaper External Catheter External Catheter # Voids 3 # Bowel Movements 1 - Constitutional General appearance: Present: cooperative, no acute distress - EENT EENT Comment(s): erythema around bilateral eyelids, clear drainage present Eyes: Present: PERRLA - Neck Neck: Present: normal ROM. Absent: lymphadenopathy, rigidity - Respiratory Respiratory: bilateral: CTA - Cardiovascular Heart sounds: normal: S1, S2 - Gastrointestinal General gastrointestinal: Present: soft. Absent: tenderness - Integumentary Integumentary: Present: normal, normal turgor - Musculoskeletal Musculoskeletal: Present: generalized weakness - Psychiatric Psychiatric: Present: A&O x's 3 - Labs CBC & Chem 7: 12/26/24 07:50 12/29/24 04:15 Labs: Abnormal Lab Results - Last 24 Hours (Table) 12/26/24 12/29/24 Range/Units 16:35 04:15 Calcium 8.3 L (8.7-10.3) mg/dL Total Bilirubin 0.2 L (0.3-1.2) mg/dL ALT 5 L (8-44) U/L Total Protein 5.4 L (6.2-8.2) g/dL Albumin 3.3 L (3.8-4.9) g/dL Albumin/Globulin Ratio 1.57 L (1.60-3.17) Ratio Methylmalonic Acid 0.49 H (<0.40) umol/L Microbiology - Last 24 Hours (Table) 12/26/24 17:50 Urine Culture - Preliminary Urine,Voided Gram Neg Bacilli Assessment and Plan (1) Gravely disabled Current Visit: Yes Status: Acute Code(s): HKJ7122 - SNOMED Code(s): 566446018 (2) History of myasthenia gravis Current Visit: Yes Status: Acute Code(s): Z86.69 - PERSONAL HISTORY OF DIS OF THE NERVOUS SYS AND SENSE ORGANS SNOMED Code(s): 750816511 (3) Vitamin B12 deficiency Current Visit: Yes Status: Acute Code(s): E53.8 - DEFICIENCY OF OTHER SPECIFIED B GROUP VITAMINS SNOMED Code(s): 691649360 (4) Hypertension Current Visit: Yes Status: Acute Code(s): I10 - ESSENTIAL (PRIMARY) HYPERTENSION SNOMED Code(s): 35826729 (5) Hyperlipidemia Current Visit: Yes Status: Acute Code(s): E78.5 - HYPERLIPIDEMIA, UNSPECIFIED SNOMED Code(s): 30463640 (6) History of pulmonary embolus (PE) Current Visit: Yes Status: Acute Code(s): Z86.711 - PERSONAL HISTORY OF PULMONARY EMBOLISM SNOMED Code(s): 491337152 (7) Conjunctivitis Current Visit: Yes Status: Acute Code(s): H10.9 - UNSPECIFIED CONJUNCTIVITIS SNOMED Code(s): 9081039 Plan: Check CBC and CMP in the morning. Will start eyedrops. Care management to work with patient for placement for subacute rehab. Patient seen and evaluated by nurse practitioner, physician in agreement with plan.
[2024-12-29 09:13] LABS: HGB 7.1 g/dL (12.0-15.0); MCH 18.5 pg (27.0-32.0); MCHC 26.3 g/dL (32.0-37.0); MCV 70.5 FL (80.0-97.0); Mean Platelet Volume 11.8 FL (9.5-12.2); NRBC Per 100 WBC 0 X 10*3/uL (0.00-0.01); Platelet Count 249 X 10*3/uL (140-440); RBC 3.83 X 10*6/uL (4.10-5.20); RDW 17.9 % (11.5-14.5); WBC 7.24 X 10*3/uL (4.50-10.00)
[2024-12-29] MEDS: KETOROLAC 15 MG/ML 1 ML VIAL IVP PRN (10:17)
[2024-12-29] MEDS: TOBRAMYCIN 0.3% OPHTH DROPS 5 ML BTL BOTH EYES SCH (12:36)
[2024-12-29] MEDS: KETOTIFEN 0.025% OPHTH DROPS 5 ML BTL BOTH EYES SCH (12:36)
[2024-12-30 08:35] LABS: HCT 27.4 % (37.2-46.3); HGB 7.3 g/dL (12.0-15.0); MCH 18.6 pg (27.0-32.0); MCHC 26.6 g/dL (32.0-37.0); MCV 69.7 FL (80.0-97.0); Mean Platelet Volume 11.5 FL (9.5-12.2); NRBC Per 100 WBC 0 X 10*3/uL (0.00-0.01); Platelet Count 256 X 10*3/uL (140-440); RBC 3.93 X 10*6/uL (4.10-5.20); RDW 18.2 % (11.5-14.5); WBC 6.16 X 10*3/uL (4.50-10.00)
[2024-12-30 09:06] LABS: ALT 7 U/L (8-44); AST 19 U/L (13-35); Albumin 3.5 g/dL (3.8-4.9); Alkaline Phosphatase 98 U/L (41-126); Blood Urea Nitrogen 17.6 mg/dL (9.0-27.0); Calcium 8.6 mg/dL (8.7-10.3); Carbon Dioxide 21.5 mmol/L (21.6-31.8); Chloride 108 mmol/L (96-109); Globulin 2.5 g/dL (1.6-3.3); Glucose 91 mg/dL (70-110); Potassium 4.3 mmol/L (3.5-5.5); Sodium 142 mmol/L (135-145); Total Bilirubin 0.3 mg/dL (0.3-1.2)
--- NOTE | 2024-12-30 09:06 | P.DS ---
Providers Date of admission: 12/26/24 09:45 Attending physician: Davis Oates Consults: 12/26/24 09:45 Consult Physician Routine Consulting Provider: Clarice Sanchez Consult Reason/Comments: myasthenia gravis Do you want consulting provider notified?: Yes Primary care physician: Davis Oates Hospital Course: The patient was admitted secondary to generalized weakness and disability with poor ambulation. Neurologic workup showed significant vitamin B12 deficiency. The patient will be discharged in stable condition once cleared by neurology for rehab. PT OT have suggested rehab and we will transfer when bed is available. History of myasthenia gravis. Patient Condition at Discharge: Fair Plan - Discharge Summary Discharge Rx Participant: No New Discharge Prescriptions: New Ferrous Sulfate [Feosol] 325 mg PO DAILY #30 tab Tobramycin 0.3% Ophth Soln [Tobrex 0.3% Ophth Soln] 1 drops BOTH EYES Q4HR #5 ml Rivaroxaban [Xarelto] 10 mg PO W/SUPPER #30 tab Ciprofloxacin HCl [Cipro] 500 mg PO BID #10 tab Cyanocobalamin (Vitamin B-12) [Vitamin B-12] 2,000 mcg PO DAILY #30 tab Ketotifen 0.025% Ophth Soln [Zaditor] 1 drops BOTH EYES BID #5 ml Continue predniSONE 10 mg PO DAILY mycophenolate mofetiL [Cellcept] 500 mg PO BID Latanoprost [Latanoprost 0.005%] 1 drop BOTH EYES HS traMADol HCl [Ultram] 50 mg PO Q6H PRN PRN Reason: Moderate Pain (Scale 4 To 6) Morphine Sulfate ER [Ms Contin] 30 mg PO Q12HR Discontinued Rivaroxaban [Xarelto] 15 mg PO W/SUPPER Discharge Medication List predniSONE 10 mg PO DAILY 05/09/15 [History] Latanoprost [Latanoprost 0.005%] 1 drop BOTH EYES HS 12/26/24 [History] Morphine Sulfate ER [Ms Contin] 30 mg PO Q12HR 12/26/24 [History] mycophenolate mofetiL [Cellcept] 500 mg PO BID 12/26/24 [History] traMADol HCl [Ultram] 50 mg PO Q6H PRN 12/26/24 [History] Ciprofloxacin HCl [Cipro] 500 mg PO BID #10 tab 02/26/25 [Rx] Cyanocobalamin (Vitamin B-12) [Vitamin B-12] 2,000 mcg PO DAILY #30 tab 12/30/24 [Rx] Ferrous Sulfate [Feosol] 325 mg PO DAILY #30 tab 12/30/24 [Rx] Ketotifen 0.025% Ophth Soln [Zaditor] 1 drops BOTH EYES BID #5 ml 12/30/24 [Rx] Rivaroxaban [Xarelto] 10 mg PO W/SUPPER #30 tab 12/30/24 [Rx] Tobramycin 0.3% Ophth Soln [Tobrex 0.3% Ophth Soln] 1 drops BOTH EYES Q4HR #5 ml 12/30/24 [Rx] Follow up Appointment(s)/Referral(s): Davis Oates MD [Primary Care Provider] - 1 Week Discharge Disposition: TRANSFER TO SNF/[facility]
--- NOTE | 2024-12-30 13:50 | CDI ---
Documentation Clarification Form Date: 12/30/2024 01:24:13 PM From: Polly Mcclain RN CCDS Phone: [phone] Admit Date: 12/26/2024 09:45:00 AM Patient Name: Teri Jeter Visit Number: [id number] Discharge Date: ATTENTION: The Clinical Documentation Specialists (CDI) and [facility] Coding Staff appreciate your assistance in clarifying documentation. Please respond to the clarification below the line at the bottom and electronically sign. The CDI & [facility] Coding staff will review the response and follow-up if needed. Please note: Queries are made part of the Legal Health Record. If you have any questions, please contact the author of this message via ITS. Doctor: Davis Oates Your patient is receiving the followin/24 Ciprofloxacin po bid. Please clarify what condition/diagnosis is being treated. History/Risk Factors: 74 year old female presents to the ED after a fall from home with pain all over and unable to tolerate even touching her skin. Medical History: Chronic pain on oral tramadol and oral MS Contin outpatient basis. Myasthenia gravis, GERD, HTN, HLD and stroke with chronic left foot drop. 12/26, HP Clinical indicators: UA, 12/26: Urine color yellow, appearance cloudy, Protein trace, ketones trace, Leukocyte Esterase Large, RBC 6, WBC 4, Bacteria Moderate, Mucus rare Urine Culture Final 12/29: Escherichia coli Proteus mirabilis Treatment: 12/28 Ciprofloxacin 500mg po bid mario What diagnosis are you treating with Ciprofloxacin HCI? [ x ] UTI POA [ ] UTI Ruled out [ ] No additional diagnosis [ ] Other, please specify [ ] Unable to determine (Template Last Reviewed: December 2020) MTDD
--- NOTE | 2024-12-30 14:11 | CDI ---
Documentation Clarification Form Date: 12/30/2024 01:39:05 PM From: Polly Mcclain RN CCDS Phone: [phone] Admit Date: 12/26/2024 09:45:00 AM Patient Name: Teri Jeter Visit Number: [id number] Discharge Date: ATTENTION: The Clinical Documentation Specialists (CDI) and [facility] Coding Staff appreciate your assistance in clarifying documentation. Please respond to the clarification below the line at the bottom and electronically sign. The CDI & [facility] Coding staff will review the response and follow-up if needed. Please note: Queries are made part of the Legal Health Record. If you have any questions, please contact the author of this message via ITS. Doctor: Davis Oates There is documentation of diffuse weakness. Additional clarification is requested. History/Risk Factors: 74 year old female presents to the ED after a fall from home with pain all over and unable to tolerate even touching her skin. Medical History: Chronic pain on oral tramadol and oral MS Contin outpatient basis. Myasthenia gravis, GERD, HTN, HLD and stroke with chronic left foot drop. 12/26, Clinical Indicators: Physical Therapy note, 12/28: History of Myasthenia gravis, Fall off bed. Physical Therapy Assessment: Patient has challenges with: Bed mobility, Strength, Balance, Transfers, Endurance and Ambulation. Patient required max assist to come to sitting from supine position. Patient able to maintain sitting balance with static, min dynamic sitting activity. Unable to stand at this time with attempt secondary to weakness. Occupational Assessment 12/29: ADLs 10/10 pain with total assist needs for bed mobility, toileting and upper body dressing. Unable to exit bed to use commode or safely transfer to recliner chair. Very weak 2/5 bilateral LEs with very high risk for falls. Very apprehensive and fearful of increased pain perception of movement. Treatment: Physical and Occupational therapy, discharge to subacute rehab Can you please clarify diffuse weakness? [ x ] Age related physical debility [ ] Other, please specify [ ] Unable to determine (Template Last Revised: January 2021) MTDD
[2024-12-30 14:34] VITALS: BP 149/92; PULSE 120; RESP 17; TEMP 97.8
[2024-12-31 22:39] LABS: Acetylchol Recept Bind Ab 8.79 nmol/L
== END 2024-12-30 17:42 | DRG 884 ==
LOC: EC 04:33 → 5NMEDONC 09:45
PROVIDERS: ADMIT Family Medicine; ATTEND Family Medicine
DX: R54 Age-related physical debility (principal); B96.20 Unspecified Escherichia coli [E. coli] as the cause of diseases classified elsewhere; J44.9 Chronic obstructive pulmonary disease, unspecified; I71.40 Abdominal aortic aneurysm, without rupture, unspecified; E66.9 Obesity, unspecified; I10 Essential (primary) hypertension; I69.998 Other sequelae following unspecified cerebrovascular disease; D50.9 Iron deficiency anemia, unspecified; N39.0 Urinary tract infection, site not specified; G70.00 Myasthenia gravis without (acute) exacerbation; Z79.891 Long term (current) use of opiate analgesic; E53.8 Deficiency of other specified B group vitamins; E78.5 Hyperlipidemia, unspecified; G89.29 Other chronic pain; H47.099 Other disorders of optic nerve, not elsewhere classified, unspecified eye; M21.372 Foot drop, left foot; K21.9 Gastro-esophageal reflux disease without esophagitis; H10.9 Unspecified conjunctivitis; B96.4 Proteus (mirabilis) (morganii) as the cause of diseases classified elsewhere; W06.XXXA Fall from bed, initial encounter; Z96.643 Presence of artificial hip joint, bilateral; Y92.009 Unspecified place in unspecified non-institutional (private) residence as the place of occurrence of the external cause; Z68.33 Body mass index [BMI] 33.0-33.9, adult; Z79.01 Long term (current) use of anticoagulants; Z79.624 Long term (current) use of inhibitors of nucleotide synthesis; Z79.52 Long term (current) use of systemic steroids; Z75.1 Person awaiting admission to adequate facility elsewhere; Z86.711 Personal history of pulmonary embolism
CPT/HCPCS: 36415; 71045; 80048; 80053; 81001; 82330; 82607; 82728; 82746; 83540; 83550; 83921; 84443; 84484; 85025; 85027; 85610; 85652; 85730; 86041; 86140; 87077; 87086; 87186; 87636; 93005; 96361; 96374; 96375; 99285